=== PATIENT | male | born 1995 | race Two or more races ===

== ENCOUNTER 2019-09-18 03:15 | Inpatient (IN) | payer OTHER ==
[~2019-09-18] VITALS: Ht 198.1 cm; Wt 92.6 kg
--- NOTE | 2019-09-18 05:10 | NUR ---
NURSE NOTES: Pt arrived to the unit pt is a direct admit from [facility], report provided by nut process helper and and pt, pt is a/ox4, breaths regular unlabored at RA, pt denies any pain while laying stil, but gets pain if he attemprts to move. abd sounds present in all quadrants but hypo active on Left lower quadrant, skin is intact with body tattoos. Oriented pt to the room , side rails upx2, bed in low locked position , call light with in reach , will call md for admission orders
--- NOTE | 2019-09-18 05:15 | NUR ---
NURSE NOTES: Vitals Bp 130/92 HR 99 RR20 T 98 o2sat 96
--- NOTE | 2019-09-18 06:40 | NUR ---
NURSE NOTES: Admission orders received verified and carried out
[2019-09-18] MEDS ORDERED: HYDROcodone/Acetamin 5/325 tab ORAL PRN (07:15)
[2019-09-18] MEDS ORDERED: Morphine Sulfate 2mg/ml Inj(IV/IM USE ONLY) IVP PRN (07:15)
--- NOTE | 2019-09-18 07:15 | NUR ---
HAND-OFF: Report given to ALESSANDRA Freeman .
--- NOTE | 2019-09-18 07:30 | NUR ---
nurse notes received patient in bed, patient awake, alert oriented x4, ambulatory, no sign of distress, HL patent, denies pain or discomfort, plan of care was discussed verbalized understanding 4 P's in progress call light w/n hector ulloa rn
[2019-09-18 08:00] VITALS: BP 142/79
[2019-09-18 09:00] LABS: BASOPHILS % (AUTO) 0.3 % (0.0-2.0); EOSINOPHILS % (AUTO) 0.1 % (0.0-3.0); HEMATOCRIT 50.6 % (42.0-52.0); LYMPHOCYTES % (AUTO) 17.2 % (20.0-45.0); MEAN CORPUSCULAR VOLUME 79 FL (80-99); MONOCYTES % (AUTO) 7.1 % (1.0-10.0); NEUTROPHILS % (AUTO) 75.3 % (45.0-75.0); PLATELET COUNT 189 K/UL (150-450); RED BLOOD COUNT 6.44 M/UL (4.70-6.10); RED CELL DISTRIBUTION WIDTH 13.5 % (11.6-14.8); WHITE BLOOD COUNT 11.9 K/UL (4.8-10.8)
[2019-09-18 09:16] LABS: ALANINE AMINOTRANSFERASE 53 U/L (12-78); ALBUMIN 3.6 G/DL (3.4-5.0); ALBUMIN/GLOBULIN RATIO 0.9 (1.0-2.7); ALKALINE PHOSPHATASE 151 U/L (46-116); ANION GAP 12 mmol/L (5-15); ASPARTATE AMINO TRANSFERASE 24 U/L (15-37); BILIRUBIN,TOTAL 0.4 MG/DL (0.2-1.0); BLOOD UREA NITROGEN 11 mg/dL (7-18); CALCIUM 8.9 MG/DL (8.5-10.1); CARBON DIOXIDE 25 MMOL/L (21-32); CHLORIDE 101 MMOL/L (98-107); CREATININE 1.1 MG/DL (0.55-1.30); PHOSPHORUS 4.3 MG/DL (2.5-4.9); POTASSIUM 3.5 MMOL/L (3.5-5.1); SODIUM 138 MMOL/L (136-145)
[2019-09-18] MEDS: cefTRIAXone 1 GM in D5W 55 ML IVPB SCH (09:24)
[2019-09-18] MEDS: D5 1/2NS w/KCl 20mEq 1,000 ML IV SCH (10:46)
--- NOTE | 2019-09-18 10:53 | NUR ---
*-* INSURANCE *-* ALL AVAILABLE CLINICALS HAVE BEEN FAXED TO: [employer] F: [phone]
--- NOTE | 2019-09-18 11:16 | General Progress Note ---
Assessment/Plan Assessment/Plan: colitis GIB elevated CRP pending stool studies pain control ivf plan colonoscopy on Monday Subjective ROS Limited/Unobtainable: Yes Allergies: Coded Allergies: No Known Allergies (Unverified , 09/18/19) Objective Last 24 Hour Vital Signs Date Time Temp Pulse Resp B/P (MAP) Pulse Ox O2 Delivery O2 Flow Rate FiO2 09/18/19 08:29 Room Air 09/18/19 08:00 98.2 98 20 142/79 (100) 99 09/18/19 07:42 Room Air Laboratory Tests 09/18/19 08:00: White Blood Count 11.9H, Red Blood Count 6.44H, Hemoglobin 17.0, Hematocrit 50.6 , Mean Corpuscular Volume 79L, Mean Corpuscular Hemoglobin 26.4L, Mean Corpuscular Hemoglobin Concent 33.6, Red Cell Distribution Width 13.5, Platelet Count 189, Mean Platelet Volume 9.6, Neutrophils (%) (Auto) 75.3H, Lymphocytes ( %) (Auto) 17.2L, Monocytes (%) (Auto) 7.1, Eosinophils (%) (Auto) 0.1, Basophils (%) (Auto) 0.3, Erythrocyte Sedimentation Rate 25H, Sodium Level 138, Potassium Level 3.5, Chloride Level 101, Carbon Dioxide Level 25, Anion Gap 12, Blood Urea Nitrogen 11, Creatinine 1.1, Estimat Glomerular Filtration Rate > 60 , Glucose Level 94, Calcium Level 8.9, Phosphorus Level 4.3, Magnesium Level 2.0 , Total Bilirubin 0.4, Aspartate Amino Transf (AST/SGOT) 24, Alanine Aminotransferase (ALT/SGPT) 53, Alkaline Phosphatase 151H, C-Reactive Protein, Quantitative 14.1H, Total Protein 7.8, Albumin 3.6, Globulin 4.2, Albumin/ Globulin Ratio 0.9L Height (Feet): 6 Weight (Pounds): 204 General Appearance: alert EENT: PERRL/EOMI Neck: supple Cardiovascular: normal rate Respiratory/Chest: decreased breath sounds Abdomen: soft, hypoactive bowel sounds, tender Extremities: non-tender Barron Keith MD September 18, 2019 11:16
[2019-09-18 11:54] VITALS: BP 136/99
--- NOTE | 2019-09-18 12:19 | History & Physical ---
History and Physical History & Physicial Dictated for Int Med-Dr Lyons no. [id number] Nick Avila MD September 18, 2019 12:19
--- NOTE | 2019-09-18 12:45 | NUR ---
CASE MANAGEMENT:INITIAL REVIEW 23 YR OLD MALE TRANSFERRED FROM [facility] TO [facility] [facility] D/T INSURANCE SI;COLITIS. GI BLEED. ELEVATED CRP. 98.2 98 20 142/79 99% ON RA WBC 11.9 ALK PHOS 151 CRP 14.1 IS;NORCO PO IVF D5W ZOFRAN IV MORPHINE IV FLAGYL IV ROCEPHIN IV ADMITTED TO MED SURG @ 0841 ON 09/18/19 MED SURG STATUS DCP;FROM HOME PLAN;CLEAR LIQUID DIET COLONOSCOPY
--- NOTE | 2019-09-18 15:24 | Consultation ---
History of Present Illness General Date patient seen: September 18, 2019 Present Illness HPI 23 year old homosexual male without any PMHx was taken to [facility] with CC of RLQ abdominal pain and bright red blood per rectum for two days. A CT of abdomen showed Colitis in transverse and descending colon. Pt is transferred to [facility] for further medical care. Allergies: Coded Allergies: No Known Allergies (Unverified , 09/18/19) Patient History Healthcare decision maker Resuscitation status Advanced Directive on File Past Medical/Surgical History Past Medical/Surgical History: (1) No pertinent past medical history Review of Systems All Other Systems: negative except mentioned in HPI Physical Exam General Appearance: WD/WN, no apparent distress Lines, tubes and drains: peripheral, PICC HEENT: normocephalic, atraumatic Neck: non-tender, normal alignment Respiratory/Chest: lungs clear, normal breath sounds Cardiovascular/Chest: normal peripheral pulses Abdomen: normal bowel sounds Genitourinary/Rectal: normal genital exam Last 24 Hour Vital Signs Date Time Temp Pulse Resp B/P (MAP) Pulse Ox O2 Delivery O2 Flow Rate FiO2 09/18/19 11:54 97.4 92 19 136/99 (111) 99 09/18/19 08:29 Room Air 09/18/19 08:00 98.2 98 20 142/79 (100) 99 09/18/19 07:42 Room Air Laboratory Tests Test 09/18/19 08:00 09/18/19 12:50 White Blood Count 11.9 K/UL (4.8-10.8) H Red Blood Count 6.44 M/UL (4.70-6.10) H Hemoglobin 17.0 G/DL (14.2-18.0) Hematocrit 50.6 % (42.0-52.0) Mean Corpuscular Volume 79 FL (80-99) L Mean Corpuscular Hemoglobin 26.4 PG (27.0-31.0) L Mean Corpuscular Hemoglobin Concent 33.6 G/DL (32.0-36.0) Red Cell Distribution Width 13.5 % (11.6-14.8) Platelet Count 189 K/UL (150-450) Mean Platelet Volume 9.6 FL (6.5-10.1) Neutrophils (%) (Auto) 75.3 % (45.0-75.0) H Lymphocytes (%) (Auto) 17.2 % (20.0-45.0) L Monocytes (%) (Auto) 7.1 % (1.0-10.0) Eosinophils (%) (Auto) 0.1 % (0.0-3.0) Basophils (%) (Auto) 0.3 % (0.0-2.0) Erythrocyte Sedimentation Rate 25 MM/HR (0-15) H Sodium Level 138 MMOL/L (136-145) Potassium Level 3.5 MMOL/L (3.5-5.1) Chloride Level 101 MMOL/L (98-107) Carbon Dioxide Level 25 MMOL/L (21-32) Anion Gap 12 mmol/L (5-15) Blood Urea Nitrogen 11 mg/dL (7-18) Creatinine 1.1 MG/DL (0.55-1.30) Estimat Glomerular Filtration Rate > 60 mL/min (>60) Glucose Level 94 MG/DL (74-106) Calcium Level 8.9 MG/DL (8.5-10.1) Phosphorus Level 4.3 MG/DL (2.5-4.9) Magnesium Level 2.0 MG/DL (1.8-2.4) Total Bilirubin 0.4 MG/DL (0.2-1.0) Aspartate Amino Transf (AST/SGOT) 24 U/L (15-37) Alanine Aminotransferase (ALT/SGPT) 53 U/L (12-78) Alkaline Phosphatase 151 U/L (46-116) H C-Reactive Protein, Quantitative 14.1 mg/dL (0.00-0.90) H Total Protein 7.8 G/DL (6.4-8.2) Albumin 3.6 G/DL (3.4-5.0) Globulin 4.2 g/dL Albumin/Globulin Ratio 0.9 (1.0-2.7) L Urine Opiates Screen Positive (NEGATIVE) H Urine Barbiturates Screen Negative (NEGATIVE) Phencyclidine (PCP) Screen Negative (NEGATIVE) Urine Amphetamines Screen Negative (NEGATIVE) Urine Benzodiazepines Screen Negative (NEGATIVE) Urine Cocaine Screen Positive (NEGATIVE) H Urine Marijuana (THC) Screen Negative (NEGATIVE) Height (Feet): 6 Weight (Pounds): 204 Medications Current Medications Medications (Trade) Dose Ordered Sig/Pallavi Route PRN Reason Start Time Stop Time Status Last Admin Dose Admin Acetaminophen (Tylenol) 650 mg Q6H PRN ORAL mild pain 1-3/temp>100.4 09/18/19 07:15 10/18/19 07:14 Acetaminophen/ Hydrocodone Bitart ([place] 5/325) 1 tab Q4H PRN ORAL Moderate Pain (Pain Scale 4-6) 09/18/19 07:15 09/25/19 07:14 Ceftriaxone Sodium 1 gm/ Dextrose 55 ml @ 110 mls/hr Q24H IVPB 09/18/19 09:00 09/25/19 08:59 09/18/19 09:24 Dextrose/ Electrolytes 1,000 ml @ 75 mls/hr [id number] IV 09/18/19 11:00 10/18/19 10:59 09/18/19 10:46 Metronidazole 100 ml @ 100 mls/hr Q8H IVPB 09/18/19 10:00 09/25/19 09:59 09/18/19 10:02 Morphine Sulfate (Morphine Sulfate) 2 mg Q4H PRN IVP Severe Pain (Pain Scale 7-10) 09/18/19 07:15 09/25/19 07:14 09/18/19 09:28 Ondansetron HCl (Zofran) 4 mg Q4H PRN IVP Nausea & Vomiting 09/18/19 07:15 10/18/19 07:14 Assessment/Plan Problem List: (1) Lower GI bleed ICD Codes: K92.2 - Gastrointestinal hemorrhage, unspecified SNOMED: 81990170 (2) colitis (3) No pertinent past medical history ICD Codes: Z78.9 - Other specified health status SNOMED: 236520262 Diagnosis Alfred I: NPO iv fluids colonoscopy jesse prbc prn ( no need now) GI evaluation. symptomatic treatment analgesics HIV testing Priyanka Hollingsworth MD September 18, 2019 15:24
[2019-09-18 15:59] VITALS: BP 134/85
--- NOTE | 2019-09-18 17:28 | Consultation ---
History of Present Illness General Date patient seen: September 18, 2019 Present Illness HPI 23 y/o M with no prior medical history is trasnferred from [facility] to [facility] on for continuation of care. Patient originally presented to [facility] ED on 09/16 with 2 days of LLQ pain and rectal bleeding ; patient had multiple episodes of bloody stools. Blood is bright red in color. Patient thought it was food poisoning. Denied fever/chills, nausea, vomiting, wt loos, GARCIA, CP, SOB CT abd/p: colitis of the transverse and descending colon. The rectosigmoid was also inflamed. Patient is with a man. they have an open relationship. Practice both receptive and isertive anal intercourse. Last receptive anal intercourse was on Feb 2019 per patient, lately has just practice oral sex. 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 The patient denies tobacco use. The patient admits to alcohol use of 2 times per month. Fhx: non contributory Review of Systems All Other Systems: negative except mentioned in HPI Physical Exam Physical Exam Narrative General Appearance: alert EENT: PERRL/EOMI Neck: supple Cardiovascular: normal rate Respiratory/Chest: decreased breath sounds Abdomen: soft, hypoactive bowel sounds, tender Extremities: non-tender Last 24 Hour Vital Signs Date Time Temp Pulse Resp B/P (MAP) Pulse Ox O2 Delivery O2 Flow Rate FiO2 09/18/19 15:59 99.7 93 20 134/85 (101) 99 09/18/19 11:54 97.4 92 19 136/99 (111) 99 09/18/19 08:29 Room Air 09/18/19 08:00 98.2 98 20 142/79 (100) 99 09/18/19 07:42 Room Air Laboratory Tests Test 09/18/19 08:00 09/18/19 12:50 White Blood Count 11.9 K/UL (4.8-10.8) H Red Blood Count 6.44 M/UL (4.70-6.10) H Hemoglobin 17.0 G/DL (14.2-18.0) Hematocrit 50.6 % (42.0-52.0) Mean Corpuscular Volume 79 FL (80-99) L Mean Corpuscular Hemoglobin 26.4 PG (27.0-31.0) L Mean Corpuscular Hemoglobin Concent 33.6 G/DL (32.0-36.0) Red Cell Distribution Width 13.5 % (11.6-14.8) Platelet Count 189 K/UL (150-450) Mean Platelet Volume 9.6 FL (6.5-10.1) Neutrophils (%) (Auto) 75.3 % (45.0-75.0) H Lymphocytes (%) (Auto) 17.2 % (20.0-45.0) L Monocytes (%) (Auto) 7.1 % (1.0-10.0) Eosinophils (%) (Auto) 0.1 % (0.0-3.0) Basophils (%) (Auto) 0.3 % (0.0-2.0) Erythrocyte Sedimentation Rate 25 MM/HR (0-15) H Sodium Level 138 MMOL/L (136-145) Potassium Level 3.5 MMOL/L (3.5-5.1) Chloride Level 101 MMOL/L (98-107) Carbon Dioxide Level 25 MMOL/L (21-32) Anion Gap 12 mmol/L (5-15) Blood Urea Nitrogen 11 mg/dL (7-18) Creatinine 1.1 MG/DL (0.55-1.30) Estimat Glomerular Filtration Rate > 60 mL/min (>60) Glucose Level 94 MG/DL (74-106) Calcium Level 8.9 MG/DL (8.5-10.1) Phosphorus Level 4.3 MG/DL (2.5-4.9) Magnesium Level 2.0 MG/DL (1.8-2.4) Total Bilirubin 0.4 MG/DL (0.2-1.0) Aspartate Amino Transf (AST/SGOT) 24 U/L (15-37) Alanine Aminotransferase (ALT/SGPT) 53 U/L (12-78) Alkaline Phosphatase 151 U/L (46-116) H C-Reactive Protein, Quantitative 14.1 mg/dL (0.00-0.90) H Total Protein 7.8 G/DL (6.4-8.2) Albumin 3.6 G/DL (3.4-5.0) Globulin 4.2 g/dL Albumin/Globulin Ratio 0.9 (1.0-2.7) L Urine Opiates Screen Positive (NEGATIVE) H Urine Barbiturates Screen Negative (NEGATIVE) Phencyclidine (PCP) Screen Negative (NEGATIVE) Urine Amphetamines Screen Negative (NEGATIVE) Urine Benzodiazepines Screen Negative (NEGATIVE) Urine Cocaine Screen Positive (NEGATIVE) H Urine Marijuana (THC) Screen Negative (NEGATIVE) Height (Feet): 6 Weight (Pounds): 204 Medications Current Medications Medications (Trade) Dose Ordered Sig/Pallavi Route PRN Reason Start Time Stop Time Status Last Admin Dose Admin Acetaminophen (Tylenol) 650 mg Q6H PRN ORAL mild pain 1-3/temp>100.4 09/18/19 07:15 10/18/19 07:14 Acetaminophen/ Hydrocodone Bitart ([place] 5/325) 1 tab Q4H PRN ORAL Moderate Pain (Pain Scale 4-6) 09/18/19 07:15 09/25/19 07:14 Ceftriaxone Sodium 1 gm/ Dextrose 55 ml @ 110 mls/hr Q24H IVPB 09/18/19 09:00 09/25/19 08:59 09/18/19 09:24 Dextrose/ Electrolytes 1,000 ml @ 75 mls/hr [id number] IV 09/18/19 11:00 10/18/19 10:59 09/18/19 10:46 Metronidazole 100 ml @ 100 mls/hr Q8H IVPB 09/18/19 10:00 09/25/19 09:59 09/18/19 10:02 Morphine Sulfate (Morphine Sulfate) 2 mg Q4H PRN IVP Severe Pain (Pain Scale 7-10) 09/18/19 07:15 09/25/19 07:14 09/18/19 09:28 Ondansetron HCl (Zofran) 4 mg Q4H PRN IVP Nausea & Vomiting 09/18/19 07:15 10/18/19 07:14 Assessment/Plan Assessment/Plan: Abx: Ceftriaxone 09/17- Flagyl 09/17- Assessment: COVID19 neg x1 (09/17 -done at [facility]) Colitis- r/o infectious vs autoimmune ([facility] or UC) Hematochezia -CT abd/p (at [place]): Thick walled edematous transver colon, descending colon and rectosigmoid colon with normal caliber. Findings suggestive of colitis , possible IBD. Normal terminal ileum. No bowel obstruction. No adenopathy. Afebrile Mild leukocytosis, improving (WBC 13.7 at [facility]) UDS + cocaine, opiates Plan: -Continue empiric Ceftriaxone and Flagyl #1 -f/u cx -monitor CBC/CMP, temperatures -f/u stool cx, Cdiff -GI f/u -HIV ag/ab Thank you for consulting [facility]. Will continue to follow along with you. Discussed with Allie Linder M.D. September 18, 2019 17:28
--- NOTE | 2019-09-18 18:15 | History and Physical Report ---
DATE OF ADMISSION: 09/18/2019 CHIEF COMPLAINT: The patient is a 23-year-old male who presents with a chief complaint of bleeding from the rectum. HISTORY OF PRESENT ILLNESS: Began on Monday September 16, 2019, the patient began to experience left lower quadrant abdominal pain. The patient then began to experience bright red blood per rectum on Tuesday September 17, 2019. The patient had multiple episodes of bloody stool. The blood is bright red in color. It is also on the toilet paper as well. The stool itself is brown in color. The patient initially presented to [facility] emergency room. A CT scan of the abdomen revealed colitis of the transverse and descending colon. The rectosigmoid was also inflamed. The patient was admitted to [facility] for insurance purposes. The patient was admitted with bright red blood per rectum with colitis. REVIEW OF SYSTEMS: CONSTITUTIONAL: The patient denies weight loss or weight gain. The patient denies fevers or chills. HEENT: The patient denies ear or throat pain. The patient denies headache. CARDIOVASCULAR: The patient denies palpitations or chest pain. CHEST: The patient denies wheeze or shortness of breath. ABDOMEN: The patient complains of left lower quadrant pain. The patient complains of bright red blood per rectum as above. The patient denies diarrhea or constipation. GENITOURINARY: The patient denies dysuria or increased frequency of urination. NEUROMUSCULAR: The patient denies seizures or generalized weakness. PAST MEDICAL HISTORY: The patient denies. PAST SURGICAL HISTORY: The patient denies. CURRENT MEDICATIONS: The patient denies. ALLERGIES: No known drug allergies. 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 The patient denies tobacco use. The patient admits to alcohol use of 2 times per month. FAMILY HISTORY: Negative for diabetes or colon cancer. PHYSICAL EXAMINATION: VITAL SIGNS: Temperature 98.3, respirations 18, pulse 105, blood pressure 149/107. GENERAL: The patient is well-developed and well-nourished male, in no apparent distress. HEENT: Eyes, pupils are equal and responsive to light and accommodation. Extraocular movements are intact. NECK: Supple without lymphadenopathy. CHEST: Lungs are clear to auscultation bilaterally without wheezes or rales. CARDIOVASCULAR: Regular rhythm and rate. S1 and S2 are normal without murmurs, rubs, or gallops. ABDOMEN: Soft, tender to palpation in the left lower quadrant without rebound or guarding. GENITOURINARY: Deferred. RECTAL: Deferred. NEUROLOGIC: Cranial nerves II through XII are grossly intact without focal deficits. Motor strength is 5/5 bilaterally. Deep tendon reflexes are 2+ plantar. LABORATORY STUDIES: WBC 13.7, hemoglobin 16.7, hematocrit 52.3, platelets 175,000. Sodium 136, potassium 3.7, chloride 102, CO2 22, BUN 11, creatinine 1.02, glucose 105. ProTime , INR 1.0. CT scan of the abdomen revealed inflammation of the transverse, descending, and rectosigmoid sigmoid colon consistent with colitis. ASSESSMENT: This is a 23-year-old male: 1. Rectal hemorrhage. 2. Colitis. 3. Left lower quadrant abdominal pain. TREATMENT: 1. Rectal hemorrhage/colitis. The patient has been started empirically on intravenous ceftriaxone and metronidazole. A Gastroenterology consultation is pending with Dr. Barron Keith. We will follow recommendations of Gastroenterology. Differential includes viral versus bacterial colitis. Stool cultures are pending. 2. Left lower quadrant abdominal pain. The patient is currently tolerating morphine sulfate intravenously and oral [place]. Nick Avila M.D. DR: Kaylene JOB#: [id number] CC:
--- NOTE | 2019-09-18 19:38 | NUR ---
HAND-OFF: Report given to Abbey APARICIO accordingly terrie ulloa.
--- NOTE | 2019-09-18 19:40 | NUR ---
NURSE NOTES: Received report from Katelyn APARICIO
--- NOTE | 2019-09-18 19:45 | NUR ---
NURSE NOTES: Pt laying in bed, A/Ox 4, No apparent distress, Breathing regular and unlabored on RA, IV site left AC 20G, Pt denies pain, bed alarm on, Low locked position, call light within reach. side rales up X3,
[2019-09-18 20:00] VITALS: BP 132/97
[2019-09-19] VITALS (7 sets, daily range): BP systolic 105–135; BP diastolic 74–87
[2019-09-19 06:39] LABS: BASOPHILS % (AUTO) 0.8 % (0.0-2.0); EOSINOPHILS % (AUTO) 0.3 % (0.0-3.0); HEMATOCRIT 46.6 % (42.0-52.0); HEMOGLOBIN 15.8 G/DL (14.2-18.0); LYMPHOCYTES % (AUTO) 34.3 % (20.0-45.0); MEAN CORPUSCULAR VOLUME 79 FL (80-99); MONOCYTES % (AUTO) 8.7 % (1.0-10.0); NEUTROPHILS % (AUTO) 55.8 % (45.0-75.0); PLATELET COUNT 189 K/UL (150-450); RED CELL DISTRIBUTION WIDTH 13.2 % (11.6-14.8); WHITE BLOOD COUNT 9.8 K/UL (4.8-10.8)
[2019-09-19 07:14] LABS: ALANINE AMINOTRANSFERASE 56 U/L (12-78); ALBUMIN 3.2 G/DL (3.4-5.0); ALBUMIN/GLOBULIN RATIO 0.8 (1.0-2.7); ALKALINE PHOSPHATASE 125 U/L (46-116); ANION GAP 9 mmol/L (5-15); ASPARTATE AMINO TRANSFERASE 32 U/L (15-37); BILIRUBIN,TOTAL 0.2 MG/DL (0.2-1.0); BLOOD UREA NITROGEN 7 mg/dL (7-18); CALCIUM 8.7 MG/DL (8.5-10.1); CARBON DIOXIDE 28 MMOL/L (21-32); CHLORIDE 101 MMOL/L (98-107); CREATININE 1.2 MG/DL (0.55-1.30); POTASSIUM 3.6 MMOL/L (3.5-5.1); SODIUM 138 MMOL/L (136-145)
--- NOTE | 2019-09-19 07:26 | NUR ---
NURSE NOTES:BEDSIDE ROUNDS WITH NIGHT RN(VERONICA),PT.AWAKE,AO X4,NO C/O PAIN.IV SITE INTACT.ADVISED RE:TO NOTIFY NURSE FOR BLOODY STOOL.WILL CONTINUE PLAN OF CARE.
--- NOTE | 2019-09-19 07:26 | NUR ---
HAND-OFF: Report given to ALESSANDRA Castellon..
[2019-09-19 07:35] LABS: PHOSPHORUS 4.2 MG/DL (2.5-4.9)
[2019-09-19] MEDS: cefTRIAXone 1 GM in D5W 55 ML IVPB SCH (08:42)
--- NOTE | 2019-09-19 09:53 | General Progress Note ---
Assessment/Plan Assessment/Plan: colitis GIB elevated CRP cocaine positive pending stool studies pain control ivf plan colonoscopy on Monday Subjective ROS Limited/Unobtainable: Yes Allergies: Coded Allergies: No Known Allergies (Unverified , 09/18/19) Objective Last 24 Hour Vital Signs Date Time Temp Pulse Resp B/P (MAP) Pulse Ox O2 Delivery O2 Flow Rate FiO2 09/19/19 08:00 98.5 91 20 134/87 (103) 98 09/19/19 07:28 Room Air 09/19/19 04:00 97.1 92 19 105/74 (84) 98 09/19/19 00:00 97.4 93 19 135/85 (102) 97 09/18/19 21:00 Room Air 09/18/19 20:00 98.0 91 19 132/97 (109) 99 09/18/19 15:59 99.7 93 20 134/85 (101) 99 09/18/19 11:54 97.4 92 19 136/99 (111) 99 Intake and Output 09/18/19 09/19/19 19:00 07:00 Intake Total 1455 ml 900 ml Output Total 650 ml Balance 1455 ml 250 ml Intake Oral 700 ml IV Total 755 ml 900 ml Output Urine Total 650 ml # Voids 3 2 # Bowel Movements 2 Laboratory Tests 09/18/19 12:50: Urine Opiates Screen PositiveH, Urine Barbiturates Screen Negative, Phencyclidine (PCP) Screen Negative, Urine Amphetamines Screen Negative, Urine Benzodiazepines Screen Negative, Urine Cocaine Screen PositiveH, Urine Marijuana (THC) Screen Negative 09/19/19 06:05: White Blood Count 9.8, Red Blood Count 5.90, Hemoglobin 15.8, Hematocrit 46.6, Mean Corpuscular Volume 79L, Mean Corpuscular Hemoglobin 26.7L, Mean Corpuscular Hemoglobin Concent 33.9, Red Cell Distribution Width 13.2, Platelet Count 189, Mean Platelet Volume 10.2H, Neutrophils (%) (Auto) 55.8, Lymphocytes (%) (Auto) 34.3, Monocytes (%) (Auto) 8.7, Eosinophils (%) (Auto) 0.3, Basophils (%) (Auto) 0.8, Erythrocyte Sedimentation Rate 6, Sodium Level 138, Potassium Level 3.6, Chloride Level 101, Carbon Dioxide Level 28, Anion Gap 9, Blood Urea Nitrogen 7, Creatinine 1.2, Estimat Glomerular Filtration Rate > 60, Glucose Level 91, Calcium Level 8.7, Phosphorus Level 4.2, Magnesium Level 2.2, Total Bilirubin 0.2, Aspartate Amino Transf (AST/SGOT) 32, Alanine Aminotransferase (ALT/SGPT) 56, Alkaline Phosphatase 125H, C-Reactive Protein, Quantitative 4.9H, Total Protein 7.2, Albumin 3.2L, Globulin 4.0, Albumin/ Globulin Ratio 0.8L, HIV (1&2) Antibody Rapid Negative Height (Feet): 6 Weight (Pounds): 204 General Appearance: alert EENT: normal ENT inspection Neck: supple Cardiovascular: normal rate Respiratory/Chest: decreased breath sounds Abdomen: normal bowel sounds, non tender, soft Extremities: normal range of motion, non-tender Barron Keith MD September 19, 2019 09:53
--- NOTE | 2019-09-19 13:32 | NUR ---
CASE MANAGEMENT:REVIEW SI;COLITIS. GI BLEED. ELEVATED CRP. 98.5 93 20 135/85 97% ON RA ALK PHOS 125 CRP 4.9 ALB 3.2 IS;IVF D5LR @ 75 ML/HR FLAGYL IV Q8 HRS ROCEPHIN IV Q8 HRS NULYTELY COLONOSCOPY PREP MED SURG STATUS DCP;FROM HOME PLAN;CLEAR LIQUID DIET NPO ON 09/20/19 COLONOSCOPY
--- NOTE | 2019-09-19 13:36 | Pulmonology Progress Note ---
Subjective ROS Limited/Unobtainable: Yes Allergies: Coded Allergies: No Known Allergies (Unverified , 09/18/19) All Systems: reviewed and negative except above Objective Last 24 Hour Vital Signs Date Time Temp Pulse Resp B/P (MAP) Pulse Ox O2 Delivery O2 Flow Rate FiO2 09/19/19 12:00 98.5 86 20 132/79 (96) 98 09/19/19 08:00 98.5 91 20 134/87 (103) 98 09/19/19 07:28 Room Air 09/19/19 04:00 97.1 92 19 105/74 (84) 98 09/19/19 00:00 97.4 93 19 135/85 (102) 97 09/18/19 21:00 Room Air 09/18/19 20:00 98.0 91 19 132/97 (109) 99 09/18/19 15:59 99.7 93 20 134/85 (101) 99 Intake and Output 09/18/19 09/19/19 18:59 06:59 Intake Total 1380 ml 900 ml Output Total 650 ml Balance 1380 ml 250 ml Intake Oral 700 ml IV Total 680 ml 900 ml Output Urine Total 650 ml # Voids 3 2 # Bowel Movements 2 General Appearance: WD/WN, no acute distress HEENT: normocephalic, atraumatic Respiratory: chest wall non-tender, lungs clear Cardiovascular: normal peripheral pulses, normal rate Abdomen: normal bowel sounds, soft, non tender Genitourinary: normal external genitalia Extremities: no clubbing Skin: no rash 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 normal Lymphatic: no neck adenopathy Microbiology Date/Time Source Procedure Growth Status 09/18/19 12:50 Stool Clostridium difficile Toxin Assay - Final Complete Laboratory Tests 09/19/19 06:05: White Blood Count 9.8, Red Blood Count 5.90, Hemoglobin 15.8, Hematocrit 46.6, Mean Corpuscular Volume 79L, Mean Corpuscular Hemoglobin 26.7L, Mean Corpuscular Hemoglobin Concent 33.9, Red Cell Distribution Width 13.2, Platelet Count 189, Mean Platelet Volume 10.2H, Neutrophils (%) (Auto) 55.8, Lymphocytes (%) (Auto) 34.3, Monocytes (%) (Auto) 8.7, Eosinophils (%) (Auto) 0.3, Basophils (%) (Auto) 0.8, Erythrocyte Sedimentation Rate 6, Sodium Level 138, Potassium Level 3.6, Chloride Level 101, Carbon Dioxide Level 28, Anion Gap 9, Blood Urea Nitrogen 7, Creatinine 1.2, Estimat Glomerular Filtration Rate > 60, Glucose Level 91, Calcium Level 8.7, Phosphorus Level 4.2, Magnesium Level 2.2, Total Bilirubin 0.2, Aspartate Amino Transf (AST/SGOT) 32, Alanine Aminotransferase (ALT/SGPT) 56, Alkaline Phosphatase 125H, C-Reactive Protein, Quantitative 4.9H, Total Protein 7.2, Albumin 3.2L, Globulin 4.0, Albumin/ Globulin Ratio 0.8L, HIV (1&2) Antibody Rapid Negative Current Medications Medications (Trade) Dose Ordered Sig/Pallavi Route PRN Reason Start Time Stop Time Status Last Admin Dose Admin Acetaminophen (Tylenol) 650 mg Q6H PRN ORAL mild pain 1-3/temp>100.4 09/18/19 07:15 10/18/19 07:14 Acetaminophen/ Hydrocodone Bitart ([place] 5/325) 1 tab Q4H PRN ORAL Moderate Pain (Pain Scale 4-6) 09/18/19 07:15 09/25/19 07:14 Ceftriaxone Sodium 1 gm/ Dextrose 55 ml @ 110 mls/hr Q24H IVPB 09/18/19 09:00 09/25/19 08:59 09/19/19 08:42 Dextrose/ Electrolytes 1,000 ml @ 75 mls/hr [id number] IV 09/18/19 11:00 10/18/19 10:59 09/19/19 00:00 Metronidazole 100 ml @ 100 mls/hr Q8H IVPB 09/18/19 10:00 09/25/19 09:59 09/19/19 09:54 Morphine Sulfate (Morphine Sulfate) 2 mg Q4H PRN IVP Severe Pain (Pain Scale 7-10) 09/18/19 07:15 09/25/19 07:14 09/18/19 09:28 Ondansetron HCl (Zofran) 4 mg Q4H PRN IVP Nausea & Vomiting 09/18/19 07:15 10/18/19 07:14 Polyethylene Glycol/ Electrolytes (Nulytely) 4,000 ml ONCE ORAL 09/19/19 14:00 09/19/19 21:00 Assessment/Plan Problems: (1) Lower GI bleed (2) colitis (3) No pertinent past medical history Assessment/Plan doing better start diet iv fluids colonoscopy done, Concepcion colitis, UC versus infectious cause prbc prn ( no need now) GI evaluation. symptomatic treatment analgesics HIV testing, negative f/u on CRP Priyanka Hollingsworth MD September 19, 2019 13:36
[2019-09-19] MEDS ORDERED: Nulytely 4L ORAL SCH (14:00)
--- NOTE | 2019-09-19 14:16 | NUR ---
NURSE NOTES:CONSENTED FOR COLONOSCOPY FOR TOMORROW,PT.VERBALIZED THAT MD EXPLAIN PROCEDURE.STARTED ON NULYTELY PREP.
[2019-09-19] MEDS: D5 1/2NS w/KCl 20mEq 1,000 ML IV SCH ×2 (14:24)
--- NOTE | 2019-09-19 15:33 | Internal Med Progress Note ---
Subjective Date of Service: September 19, 2019 Physician Name Nick Avila Attending Physician Tristen Lyons MD Current Medications Medications (Trade) Dose Ordered Sig/Pallavi Route PRN Reason Start Time Stop Time Status Last Admin Dose Admin Acetaminophen (Tylenol) 650 mg Q6H PRN ORAL mild pain 1-3/temp>100.4 09/18/19 07:15 10/18/19 07:14 Acetaminophen/ Hydrocodone Bitart ([place] 5/325) 1 tab Q4H PRN ORAL Moderate Pain (Pain Scale 4-6) 09/18/19 07:15 09/25/19 07:14 Ceftriaxone Sodium 1 gm/ Dextrose 55 ml @ 110 mls/hr Q24H IVPB 09/18/19 09:00 09/25/19 08:59 09/19/19 08:42 Dextrose/ Electrolytes 1,000 ml @ 75 mls/hr [id number] IV 09/18/19 11:00 10/18/19 10:59 09/19/19 14:24 Metronidazole 100 ml @ 100 mls/hr Q8H IVPB 09/18/19 10:00 09/25/19 09:59 09/19/19 09:54 Morphine Sulfate (Morphine Sulfate) 2 mg Q4H PRN IVP Severe Pain (Pain Scale 7-10) 09/18/19 07:15 09/25/19 07:14 09/18/19 09:28 Ondansetron HCl (Zofran) 4 mg Q4H PRN IVP Nausea & Vomiting 09/18/19 07:15 10/18/19 07:14 Polyethylene Glycol/ Electrolytes (Nulytely) 4,000 ml ONCE ORAL 09/19/19 14:00 09/19/19 21:00 09/19/19 14:24 Allergies: Coded Allergies: No Known Allergies (Unverified , 09/18/19) ROS Limited/Unobtainable: No Constitutional: Reports: no symptoms HEENT: Reports: no symptoms Cardiovascular: Reports: no symptoms Respiratory: Reports: no symptoms Gastrointestinal/Abdominal: Reports: abdominal pain Genitourinary: Reports: no symptoms Neurologic/Psychiatric: Reports: no symptoms Subjective 23 YO M admitted with abdominal pain and rectal bleeding. Now colitis. Cover for Int med-Dr Lyons. Objective Last Vital Signs Date Time Temp Pulse Resp B/P (MAP) Pulse Ox O2 Delivery O2 Flow Rate FiO2 09/19/19 12:00 98.5 86 20 132/79 (96) 98 09/19/19 07:28 Room Air Laboratory Tests Test 09/19/19 06:05 White Blood Count 9.8 K/UL (4.8-10.8) Red Blood Count 5.90 M/UL (4.70-6.10) Hemoglobin 15.8 G/DL (14.2-18.0) Hematocrit 46.6 % (42.0-52.0) Mean Corpuscular Volume 79 FL (80-99) L Mean Corpuscular Hemoglobin 26.7 PG (27.0-31.0) L Mean Corpuscular Hemoglobin Concent 33.9 G/DL (32.0-36.0) Red Cell Distribution Width 13.2 % (11.6-14.8) Platelet Count 189 K/UL (150-450) Mean Platelet Volume 10.2 FL (6.5-10.1) H Neutrophils (%) (Auto) 55.8 % (45.0-75.0) Lymphocytes (%) (Auto) 34.3 % (20.0-45.0) Monocytes (%) (Auto) 8.7 % (1.0-10.0) Eosinophils (%) (Auto) 0.3 % (0.0-3.0) Basophils (%) (Auto) 0.8 % (0.0-2.0) Erythrocyte Sedimentation Rate 6 MM/HR (0-15) Sodium Level 138 MMOL/L (136-145) Potassium Level 3.6 MMOL/L (3.5-5.1) Chloride Level 101 MMOL/L (98-107) Carbon Dioxide Level 28 MMOL/L (21-32) Anion Gap 9 mmol/L (5-15) Blood Urea Nitrogen 7 mg/dL (7-18) Creatinine 1.2 MG/DL (0.55-1.30) Estimat Glomerular Filtration Rate > 60 mL/min (>60) Glucose Level 91 MG/DL (74-106) Calcium Level 8.7 MG/DL (8.5-10.1) Phosphorus Level 4.2 MG/DL (2.5-4.9) Magnesium Level 2.2 MG/DL (1.8-2.4) Total Bilirubin 0.2 MG/DL (0.2-1.0) Aspartate Amino Transf (AST/SGOT) 32 U/L (15-37) Alanine Aminotransferase (ALT/SGPT) 56 U/L (12-78) Alkaline Phosphatase 125 U/L (46-116) H C-Reactive Protein, Quantitative 4.9 mg/dL (0.00-0.90) H Total Protein 7.2 G/DL (6.4-8.2) Albumin 3.2 G/DL (3.4-5.0) L Globulin 4.0 g/dL Albumin/Globulin Ratio 0.8 (1.0-2.7) L HIV (1&2) Antibody Rapid Negative (NEGATIVE) Microbiology Date/Time Source Procedure Growth Status 09/18/19 12:50 Stool Clostridium difficile Toxin Assay - Final Complete Intake and Output 09/18/19 09/19/19 19:00 07:00 Intake Total 1455 ml 900 ml Output Total 650 ml Balance 1455 ml 250 ml Intake Oral 700 ml IV Total 755 ml 900 ml Output Urine Total 650 ml # Voids 3 2 # Bowel Movements 2 Objective PHYSICAL EXAMINATION: GENERAL: The patient is well-developed and well-nourished male, in no apparent distress. HEENT: Eyes, pupils are equal and responsive to light and accommodation. Extraocular movements are intact. NECK: Supple without lymphadenopathy. CHEST: Lungs are clear to auscultation bilaterally without wheezes or rales. CARDIOVASCULAR: Regular rhythm and rate. S1 and S2 are normal without murmurs, rubs, or gallops. ABDOMEN: Soft, tender to palpation in the left lower quadrant without rebound or guarding. GENITOURINARY: Deferred. RECTAL: Deferred. NEUROLOGIC: Cranial nerves II through XII are grossly intact without focal deficits. Motor strength is 5/5 bilaterally. Deep tendon reflexes are 2+ plantar. Assessment/Plan Assessment/Plan ASSESSMENT: This is a 23-year-old male: 1. Rectal hemorrhage. 2. Colitis. 3. Left lower quadrant abdominal pain. TREATMENT: 1. Rectal hemorrhage/colitis. The patient has been started empirically on intravenous ceftriaxone and metronidazole. Gastroenterology= Dr. Barron Keith. Colonoscopy is scheduled for Mon09/20/19. Differential includes viral versus bacterial colitis. Stool cultures are pending. 2. Left lower quadrant abdominal pain. The patient is currently tolerating morphine sulfate intravenously and oral Salcha. Nick Avila MD September 19, 2019 15:33
--- NOTE | 2019-09-19 16:14 | Infectious Diseases Prog Note ---
Assessment/Plan Assessment/Plan Assessment: COVID19 neg x1 (09/17 -done at [place]) Colitis- r/o infectious vs autoimmune ([facility] or UC) Hematochezia -CT abd/p (at [facility]): Thick walled edematous transver colon, descending colon and rectosigmoid colon with normal caliber. Findings suggestive of colitis , possible IBD. Normal terminal ileum. No bowel obstruction. No adenopathy. -Cdiff neg Afebrile Mild leukocytosis, improving (WBC 13.7 at [place])- SP UDS + cocaine, opiates HIV ab screen neg Plan: -Continue empiric Ceftriaxone and Flagyl #2 -f/u cx -monitor CBC/CMP, temperatures -f/u stool cx -GI f/u: plan for colonoscopy 09/19 Thank you for consulting [facility]. Will continue to follow along with you. Discussed with RN. Subjective Allergies: Coded Allergies: No Known Allergies (Unverified , 09/18/19) Objective Vital Signs Last 24 Hour Vital Signs Date Time Temp Pulse Resp B/P (MAP) Pulse Ox O2 Delivery O2 Flow Rate FiO2 09/19/19 12:00 98.5 86 20 132/79 (96) 98 09/19/19 08:00 98.5 91 20 134/87 (103) 98 09/19/19 07:28 Room Air 09/19/19 04:00 97.1 92 19 105/74 (84) 98 09/19/19 00:00 97.4 93 19 135/85 (102) 97 09/18/19 21:00 Room Air 09/18/19 20:00 98.0 91 19 132/97 (109) 99 Height (Feet): 6 Weight (Pounds): 204 Microbiology Date/Time Source Procedure Growth Status 09/18/19 12:50 Stool Clostridium difficile Toxin Assay - Final Complete Laboratory Tests Test 09/19/19 06:05 White Blood Count 9.8 K/UL (4.8-10.8) Red Blood Count 5.90 M/UL (4.70-6.10) Hemoglobin 15.8 G/DL (14.2-18.0) Hematocrit 46.6 % (42.0-52.0) Mean Corpuscular Volume 79 FL (80-99) L Mean Corpuscular Hemoglobin 26.7 PG (27.0-31.0) L Mean Corpuscular Hemoglobin Concent 33.9 G/DL (32.0-36.0) Red Cell Distribution Width 13.2 % (11.6-14.8) Platelet Count 189 K/UL (150-450) Mean Platelet Volume 10.2 FL (6.5-10.1) H Neutrophils (%) (Auto) 55.8 % (45.0-75.0) Lymphocytes (%) (Auto) 34.3 % (20.0-45.0) Monocytes (%) (Auto) 8.7 % (1.0-10.0) Eosinophils (%) (Auto) 0.3 % (0.0-3.0) Basophils (%) (Auto) 0.8 % (0.0-2.0) Erythrocyte Sedimentation Rate 6 MM/HR (0-15) Sodium Level 138 MMOL/L (136-145) Potassium Level 3.6 MMOL/L (3.5-5.1) Chloride Level 101 MMOL/L (98-107) Carbon Dioxide Level 28 MMOL/L (21-32) Anion Gap 9 mmol/L (5-15) Blood Urea Nitrogen 7 mg/dL (7-18) Creatinine 1.2 MG/DL (0.55-1.30) Estimat Glomerular Filtration Rate > 60 mL/min (>60) Glucose Level 91 MG/DL (74-106) Calcium Level 8.7 MG/DL (8.5-10.1) Phosphorus Level 4.2 MG/DL (2.5-4.9) Magnesium Level 2.2 MG/DL (1.8-2.4) Total Bilirubin 0.2 MG/DL (0.2-1.0) Aspartate Amino Transf (AST/SGOT) 32 U/L (15-37) Alanine Aminotransferase (ALT/SGPT) 56 U/L (12-78) Alkaline Phosphatase 125 U/L (46-116) H C-Reactive Protein, Quantitative 4.9 mg/dL (0.00-0.90) H Total Protein 7.2 G/DL (6.4-8.2) Albumin 3.2 G/DL (3.4-5.0) L Globulin 4.0 g/dL Albumin/Globulin Ratio 0.8 (1.0-2.7) L HIV (1&2) Antibody Rapid Negative (NEGATIVE) Current Medications Medications (Trade) Dose Ordered Sig/Pallavi Route PRN Reason Start Time Stop Time Status Last Admin Dose Admin Acetaminophen (Tylenol) 650 mg Q6H PRN ORAL mild pain 1-3/temp>100.4 09/18/19 07:15 10/18/19 07:14 Acetaminophen/ Hydrocodone Bitart ([place] 5/325) 1 tab Q4H PRN ORAL Moderate Pain (Pain Scale 4-6) 09/18/19 07:15 09/25/19 07:14 Ceftriaxone Sodium 1 gm/ Dextrose 55 ml @ 110 mls/hr Q24H IVPB 09/18/19 09:00 09/25/19 08:59 09/19/19 08:42 Dextrose/ Electrolytes 1,000 ml @ 75 mls/hr [id number] IV 09/18/19 11:00 10/18/19 10:59 09/19/19 14:24 Metronidazole 100 ml @ 100 mls/hr Q8H IVPB 09/18/19 10:00 09/25/19 09:59 09/19/19 09:54 Morphine Sulfate (Morphine Sulfate) 2 mg Q4H PRN IVP Severe Pain (Pain Scale 7-10) 09/18/19 07:15 09/25/19 07:14 09/18/19 09:28 Ondansetron HCl (Zofran) 4 mg Q4H PRN IVP Nausea & Vomiting 09/18/19 07:15 10/18/19 07:14 Polyethylene Glycol/ Electrolytes (Nulytely) 4,000 ml ONCE ORAL 09/19/19 14:00 09/19/19 21:00 09/19/19 14:24 Allie Vaughan M.D. September 19, 2019 16:13
--- NOTE | 2019-09-19 16:41 | NUR ---
*-* INSURANCE *-* ALL AVAILABLE CLINICALS HAVE BEEN FAXED TO: [employer] F: [phone]
--- NOTE | 2019-09-19 18:00 | NUR ---
NURSE NOTES:WITH GOOD RESULT FR. BOWEL PREP,TO CONTINUE THE REMAINING 2 LITERS AT 8 PM.PT. AWARE.
--- NOTE | 2019-09-19 19:31 | NUR ---
HAND-OFF: Report given to AMMON APARICIO.BEDSIDE ROUNDS DONE, PT.STABLE.
--- NOTE | 2019-09-19 19:35 | NUR ---
NURSE NOTES: Received report from ALESSANDRA Castellon. Patient is in bed resting comfortably. ANO x4. On room air with no signs of distress or SOB. No C/O pain or nausea at this time. IV intact and running IVF as ordered. Bed locked and in lowest position. Call light in easy reach. Will continue to follow plan of care.
[2019-09-20] VITALS (7 sets, daily range): BP systolic 105–133; BP diastolic 54–86
[2019-09-20 06:04] LABS: BASOPHILS % (AUTO) 1.3 % (0.0-2.0); EOSINOPHILS % (AUTO) 0.5 % (0.0-3.0); HEMATOCRIT 42.7 % (42.0-52.0); HEMOGLOBIN 14.5 G/DL (14.2-18.0); LYMPHOCYTES % (AUTO) 42.8 % (20.0-45.0); MEAN CORPUSCULAR VOLUME 79 FL (80-99); MONOCYTES % (AUTO) 8.5 % (1.0-10.0); PLATELET COUNT 179 K/UL (150-450); WHITE BLOOD COUNT 7.3 K/UL (4.8-10.8)
[2019-09-20] MEDS: D5 1/2NS w/KCl 20mEq 1,000 ML IV SCH ×2 (06:12→16:20)
[2019-09-20 06:37] LABS: ALANINE AMINOTRANSFERASE 57 U/L (12-78); ALBUMIN/GLOBULIN RATIO 0.8 (1.0-2.7); ALKALINE PHOSPHATASE 113 U/L (46-116); ANION GAP 11 mmol/L (5-15); ASPARTATE AMINO TRANSFERASE 28 U/L (15-37); BILIRUBIN,TOTAL 0.1 MG/DL (0.2-1.0); CARBON DIOXIDE 27 MMOL/L (21-32); CHLORIDE 104 MMOL/L (98-107); CREATININE < 0.2 MG/DL (0.55-1.30); PHOSPHORUS 3.8 MG/DL (2.5-4.9); POTASSIUM 3.4 MMOL/L (3.5-5.1); SODIUM 141 MMOL/L (136-145)
[2019-09-20] MEDS ORDERED: Atropine Inj 1mg/10ml Syr IV PRN (06:45)
[2019-09-20] MEDS ORDERED: Midazolam 2mg/2ml Inj IVP PRN (06:45)
[2019-09-20] MEDS ORDERED: DiphenhydrAMINE 50mg/ml Inj IVP PRN (06:45)
[2019-09-20] MEDS ORDERED: fentaNYL 100 mcg/2 mL IV PRN (06:45)
--- NOTE | 2019-09-20 06:46 | Anethesia Preoperative Eval ---
Anesthesia Pre-op PMH/ROS General Date of Evaluation: September 20, 2019 Time of Evaluation: 06:44 Anesthesiologist: bryce ASA Score: ASA 2 Mallampati Score Class I : Soft palate, uvula, fauces, pillars visible Class II: Soft palate, uvula, fauces visible Class III: Soft palate, base of uvula visible Class IV: Only hard plate visible Mallampati Classification: Class II Surgeon: carlos Diagnosis: colitis, rectal bleed Surgical Procedure: colonoscopy Anesthesia History: none Social History: smoking - unknown status Family History: no anesthesia problems Allergies: Coded Allergies: No Known Allergies (Unverified , 09/18/19) Medications: see eMAR Patient NPO?: Yes Past Medical History Gastrointestinal/Genitourinary: Reports: other - colitis, rectal bleed Anesthesia Pre-op Phys. Exam Physician Exam Last Vital Signs Date Time Temp Pulse Resp B/P (MAP) Pulse Ox O2 Delivery O2 Flow Rate FiO2 09/20/19 04:00 98.5 75 18 107/72 (84) 96 09/19/19 20:12 Room Air Constitutional: NAD Neurologic: CN 2-12 intact Cardiovascular: RRR Respiratory: CTA Gastrointestinal: S/NT/ND Airway Exam Mallampati Score: Class II MO: full Neck: flexible TMD: 2fb ROM: full Teeth: intact Anesthesia Pre-op A/P Labs Labs Test 09/18/19 08:00 09/18/19 12:50 09/19/19 06:05 09/20/19 05:35 White Blood Count 11.9 K/UL (4.8-10.8) 9.8 K/UL (4.8-10.8) 7.3 K/UL (4.8-10.8) Red Blood Count 6.44 M/UL (4.70-6.10) 5.90 M/UL (4.70-6.10) 5.40 M/UL (4.70-6.10) Hemoglobin 17.0 G/DL (14.2-18.0) 15.8 G/DL (14.2-18.0) 14.5 G/DL (14.2-18.0) Hematocrit 50.6 % (42.0-52.0) 46.6 % (42.0-52.0) 42.7 % (42.0-52.0) Mean Corpuscular Volume 79 FL (80-99) 79 FL (80-99) 79 FL (80-99) Mean Corpuscular Hemoglobin 26.4 PG (27.0-31.0) 26.7 PG (27.0-31.0) 26.9 PG (27.0-31.0) Mean Corpuscular Hemoglobin Concent 33.6 G/DL (32.0-36.0) 33.9 G/DL (32.0-36.0) 34.1 G/DL (32.0-36.0) Red Cell Distribution Width 13.5 % (11.6-14.8) 13.2 % (11.6-14.8) 13.0 % (11.6-14.8) Platelet Count 189 K/UL (150-450) 189 K/UL (150-450) 179 K/UL (150-450) Mean Platelet Volume 9.6 FL (6.5-10.1) 10.2 FL (6.5-10.1) 10.7 FL (6.5-10.1) Neutrophils (%) (Auto) 75.3 % (45.0-75.0) 55.8 % (45.0-75.0) 47.0 % (45.0-75.0) Lymphocytes (%) (Auto) 17.2 % (20.0-45.0) 34.3 % (20.0-45.0) 42.8 % (20.0-45.0) Monocytes (%) (Auto) 7.1 % (1.0-10.0) 8.7 % (1.0-10.0) 8.5 % (1.0-10.0) Eosinophils (%) (Auto) 0.1 % (0.0-3.0) 0.3 % (0.0-3.0) 0.5 % (0.0-3.0) Basophils (%) (Auto) 0.3 % (0.0-2.0) 0.8 % (0.0-2.0) 1.3 % (0.0-2.0) Erythrocyte Sedimentation Rate 25 MM/HR (0-15) 6 MM/HR (0-15) Sodium Level 138 MMOL/L (136-145) 138 MMOL/L (136-145) 141 MMOL/L (136-145) Potassium Level 3.5 MMOL/L (3.5-5.1) 3.6 MMOL/L (3.5-5.1) 3.4 MMOL/L (3.5-5.1) Chloride Level 101 MMOL/L (98-107) 101 MMOL/L (98-107) 104 MMOL/L (98-107) Carbon Dioxide Level 25 MMOL/L (21-32) 28 MMOL/L (21-32) 27 MMOL/L (21-32) Anion Gap 12 mmol/L (5-15) 9 mmol/L (5-15) 11 mmol/L (5-15) Blood Urea Nitrogen 11 mg/dL (7-18) 7 mg/dL (7-18) < 1 mg/dL (7-18) Creatinine 1.1 MG/DL (0.55-1.30) 1.2 MG/DL (0.55-1.30) < 0.2 MG/DL (0.55-1.30) Estimat Glomerular Filtration Rate > 60 mL/min (>60) > 60 mL/min (>60) > 60 mL/min (>60) Glucose Level 94 MG/DL (74-106) 91 MG/DL (74-106) 90 MG/DL (74-106) Calcium Level 8.9 MG/DL (8.5-10.1) 8.7 MG/DL (8.5-10.1) 8.6 MG/DL (8.5-10.1) Phosphorus Level 4.3 MG/DL (2.5-4.9) 4.2 MG/DL (2.5-4.9) 3.8 MG/DL (2.5-4.9) Magnesium Level 2.0 MG/DL (1.8-2.4) 2.2 MG/DL (1.8-2.4) 2.0 MG/DL (1.8-2.4) Total Bilirubin 0.4 MG/DL (0.2-1.0) 0.2 MG/DL (0.2-1.0) 0.1 MG/DL (0.2-1.0) Aspartate Amino Transf (AST/SGOT) 24 U/L (15-37) 32 U/L (15-37) 28 U/L (15-37) Alanine Aminotransferase (ALT/SGPT) 53 U/L (12-78) 56 U/L (12-78) 57 U/L (12-78) Alkaline Phosphatase 151 U/L (46-116) 125 U/L (46-116) 113 U/L (46-116) C-Reactive Protein, Quantitative 14.1 mg/dL (0.00-0.90) 4.9 mg/dL (0.00-0.90) 1.1 mg/dL (0.00-0.90) Total Protein 7.8 G/DL (6.4-8.2) 7.2 G/DL (6.4-8.2) 6.7 G/DL (6.4-8.2) Albumin 3.6 G/DL (3.4-5.0) 3.2 G/DL (3.4-5.0) 3.0 G/DL (3.4-5.0) Globulin 4.2 g/dL 4.0 g/dL 3.7 g/dL Albumin/Globulin Ratio 0.9 (1.0-2.7) 0.8 (1.0-2.7) 0.8 (1.0-2.7) Urine Opiates Screen Positive (NEGATIVE) Urine Barbiturates Screen Negative (NEGATIVE) Phencyclidine (PCP) Screen Negative (NEGATIVE) Urine Amphetamines Screen Negative (NEGATIVE) Urine Benzodiazepines Screen Negative (NEGATIVE) Urine Cocaine Screen Positive (NEGATIVE) Urine Marijuana (THC) Screen Negative (NEGATIVE) HIV (1&2) Antibody Rapid Negative (NEGATIVE) Risk Assessment & Plan Assessment: asa2 Plan: mac Status Change Before Surgery: No Pre-Antibiotics Drug: Suad Bradley MD September 20, 2019 06:46
--- NOTE | 2019-09-20 07:15 | NUR ---
HAND-OFF: Report given to ALESSANDRA Salmeron.
--- NOTE | 2019-09-20 07:25 | NUR ---
NURSE NOTES: Handoff received from Catina APARICIO. Patient is awake and alert, no signs of distress noted. No complaints of pain, patient states that he is "relaxed." IV is patent and asymptomatic, running IVF as ordered. Patient is scheduled for a colonoscopy this AM. Bed is low and locked, side rails up x2, call light is within reach.
[2019-09-20 07:49] LABS: CALCIUM 8.6 MG/DL (8.5-10.1)
[2019-09-20 07:58] LABS: BLOOD UREA NITROGEN 7 mg/dL (7-18)
--- NOTE | 2019-09-20 07:58 | NUR ---
NURSE NOTES: Patient left for colonoscopy in stable condition.
[2019-09-20] MEDS ORDERED: Lidocaine 1% MPF 10mg/ml 5ml ONE (08:00)
--- NOTE | 2019-09-20 08:06 | Pre-Procedure Note/Attestation ---
Pre-Procedure Note/Attestation Complete Prior to Procedure Planned Procedure: not applicable Procedure Narrative: colonoscopy Indications for Procedure Pre-Operative Diagnosis: gib Attestation I attest that I discussed the nature of the procedure; its benefits; risks and complications; and alternatives (and the risks and benefits of such alternatives ), prior to the procedure, with the patient (or the patient's legal dairy supplies sales representative). I attest that, if there was a reasonable possibility of needing a blood transfusion, the patient (or the patient's legal dairy supplies sales representative) was given the [facility] standardized written summary, pursuant to the [place] Blood Safety Act ([place] Health and Safety Code # 1645, as amended). I attest that I re-evaluated the patient just prior to the surgery and that there has been no change in the patient's H&P, except as documented below: Barron Keith MD September 20, 2019 08:06
[2019-09-20] MEDS ORDERED: NS 500ML IVPB ONE (08:07)
--- NOTE | 2019-09-20 08:26 | Endoscopy Procedure Note ---
Endoscopy Procedure Note General Indication for Procedure: gib Procedures Performed: colonoscopy Operative Findings/Diagnosis: colitis Specimen: yes Pt Tolerated Procedure Well: Yes Estimated Blood Loss: none Anesthesia Anesthesiologist: jeff Anesthesia: MAC Inserted Devices Implant(s) used?: No Quality Quality of Bowel Preparation: Good Did scope reach the cecum?: Yes Was there any complications?: No GI Core Measures 50 yrs or older w/o bx or poly: Not Applicable 10yrs. F/U recommended: Not Applicable Barron Keith MD September 20, 2019 08:26
--- NOTE | 2019-09-20 08:53 | NUR ---
NURSE NOTES: Patient returned from colonoscopy in stable condition.
--- NOTE | 2019-09-20 09:10 | Immediate Post-Op Evaluation ---
Immediate Post-Op Evalulation Immediate Post-Op Evalulation Procedure: colonoscopy w/bx Date of Evaluation: September 20, 2019 Time of Evaluation: 08:44 IV Fluids: 100ml Blood Products: none Estimated Blood Loss: negligible Blood Pressure Systolic: 111 Blood Pressure Diastolic: 64 Pulse Rate: 73 Respiratory Rate: 18 O2 Sat by Pulse Oximetry: 100 Temperature (Fahrenheit): 97.0 Pain Score (1-10): 0 Nausea: No Vomiting: No Complications none Patient Status: awake, reacts, patent Hydration Status: adequate Drug: Suad Bradley MD September 20, 2019 09:10
--- NOTE | 2019-09-20 09:11 | 48 Hour Post Anesthesia Eval ---
Post Anesthesia Evaluation Procedure: colonoscopy w/bx Date of Evaluation: September 20, 2019 Time of Evaluation: 08:46 Blood Pressure Systolic: 114 0: 54 Pulse Rate: 73 Respiratory Rate: 18 Temperature (Fahrenheit): 97.0 O2 Sat by Pulse Oximetry: 100 Airway: patent Nausea: No Vomiting: No Pain Intensity: 0 Hydration Status: adequate Cardiopulmonary Status: stable Mental Status/LOC: patient returned to baseline Post-Anesthesia Complications: none Follow-up care needed: N/A Suad Harrell MD September 20, 2019 09:11
[2019-09-20] MEDS: cefTRIAXone 1 GM in D5W 55 ML IVPB SCH (09:24)
--- NOTE | 2019-09-20 12:15 | Procedure Note ---
DATE OF PROCEDURE: 09/20/2019 SURGEON: Barron Keith MD. PROCEDURE: Colonoscopy with biopsy. ANESTHESIA: Per Dr. Morris. INSTRUMENT: Olympus adult flexible colonoscope. INDICATION: Rectal bleeding. REASON FOR PROCEDURE: The procedure, risks, benefits, and possible consequences, including hemorrhage, aspiration, perforation and infection, and alternative treatments, were explained to the patient/legal guardian by Dr. Barron Keith and the patient/legal guardian understood and accepted these risks. DESCRIPTION OF PROCEDURE: After informed consent was obtained and the patient was adequately sedated, first rectal exam was performed, which was normal. Then, the scope was advanced from rectum into the cecum documented by appendiceal orifice, ileocecal valve, and right upper quadrant palpation. Quality of prep was very good. The patient had evidence of colitis starting from the rectum all the way to about 40 cm from the anal verge, nonspecific. Differential diagnosis would be ulcerative colitis versus infectious colitis versus cocaine-induced colitis. Plan at this time to follow biopsy results. Biopsy from the sigmoid and rectum was obtained. Retroflexion of rectum was performed showed evidence of internal hemorrhoids. SUMMARY OF FINDINGS: 1. Evidence of colitis starting from rectum up to about 40 cm, nonspecific. Differential diagnosis ulcerative colitis versus infectious colitis versus cocaine-induced colitis. 2. Internal hemorrhoids. RECOMMENDATIONS: Follow up biopsy results and treat accordingly. Start diet and advance as tolerated. The patient most probably will benefit from outpatient followup for getting results of the biopsy and management. I want to thank, Dr. Tristen Lyons, for this kind referral. Barron Keith M.D. DR: PASHA JOB#: [id number] CC: Tristen Lyons MD.; Fax#: [phone]
--- NOTE | 2019-09-20 13:33 | NUR ---
*-* INSURANCE *-* UPDATED CLINICALS HAVE BEEN FAXED TO: [facility] F: [phone]
--- NOTE | 2019-09-20 14:54 | Pulmonology Progress Note ---
Subjective ROS Limited/Unobtainable: No Constitutional: Reports: no symptoms Allergies: Coded Allergies: No Known Allergies (Unverified , 09/18/19) All Systems: reviewed and negative except above Objective Last 24 Hour Vital Signs Date Time Temp Pulse Resp B/P (MAP) Pulse Ox O2 Delivery O2 Flow Rate FiO2 09/20/19 12:00 98.4 81 21 124/78 (93) 97 09/20/19 09:11 73 18 100 09/20/19 09:10 73 18 100 09/20/19 09:00 Room Air 09/20/19 08:52 97.8 75 18 105/56 98 Room Air 09/20/19 08:42 73 23 114/54 98 Room Air 09/20/19 08:37 78 15 105/81 99 Room Air 09/20/19 08:32 97.0 79 18 111/69 99 Simple Mask 6 09/20/19 04:00 98.5 75 18 107/72 (84) 96 09/19/19 23:55 98.5 87 18 124/87 (99) 97 09/19/19 20:12 Room Air 09/19/19 20:00 98.7 85 18 127/83 (98) 98 09/19/19 16:00 98.5 86 20 132/79 (96) 98 Intake and Output 09/19/19 09/20/19 19:00 07:00 Intake Total 1305 ml 800 ml Balance 1305 ml 800 ml Intake Oral 700 ml 800 ml IV Total 605 ml # Voids 5 2 # Bowel Movements 6 3 General Appearance: WD/WN, no acute distress HEENT: normocephalic, atraumatic Respiratory: chest wall non-tender, lungs clear Cardiovascular: normal peripheral pulses, normal rate Abdomen: normal bowel sounds, soft, non tender Genitourinary: normal external genitalia Extremities: no clubbing Skin: no rash 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 Lymphatic: no neck adenopathy Microbiology Date/Time Source Procedure Growth Status 09/18/19 12:50 Stool Clostridium difficile Toxin Assay - Final Complete Laboratory Tests 09/20/19 05:35: White Blood Count 7.3, Red Blood Count 5.40, Hemoglobin 14.5, Hematocrit 42.7, Mean Corpuscular Volume 79L, Mean Corpuscular Hemoglobin 26.9L, Mean Corpuscular Hemoglobin Concent 34.1, Red Cell Distribution Width 13.0, Platelet Count 179, Mean Platelet Volume 10.7H, Neutrophils (%) (Auto) 47.0, Lymphocytes (%) (Auto) 42.8, Monocytes (%) (Auto) 8.5, Eosinophils (%) (Auto) 0.5, Basophils (%) (Auto) 1.3, Erythrocyte Sedimentation Rate 7, Sodium Level 141, Potassium Level 3.4L, Chloride Level 104, Carbon Dioxide Level 27, Anion Gap 11 , Blood Urea Nitrogen 7, Creatinine < 0.2#L, Estimat Glomerular Filtration Rate > 60, Glucose Level 90, Calcium Level 8.6, Phosphorus Level 3.8, Magnesium Level 2.0, Total Bilirubin 0.1L, Aspartate Amino Transf (AST/SGOT) 28, Alanine Aminotransferase (ALT/SGPT) 57, Alkaline Phosphatase 113, C-Reactive Protein, Quantitative 1.1H, Total Protein 6.7, Albumin 3.0L, Globulin 3.7, Albumin/ Globulin Ratio 0.8L Current Medications Medications (Trade) Dose Ordered Sig/Pallavi Route PRN Reason Start Time Stop Time Status Last Admin Dose Admin Acetaminophen (Tylenol) 650 mg Q4H PRN ORAL Mild Pain (Pain Scale 1-3) 09/20/19 06:45 09/20/19 18:00 Acetaminophen (Tylenol) 650 mg Q6H PRN ORAL mild pain 1-3/temp>100.4 09/18/19 07:15 10/18/19 07:14 Acetaminophen/ Hydrocodone Bitart ([place] 5/325) 1 tab Q4H PRN ORAL Moderate Pain (Pain Scale 4-6) 09/18/19 07:15 09/25/19 07:14 Al Hydroxide/Mg Hydroxide (Mylanta) 15 ml Q1H PRN ORAL gi upset 09/20/19 06:45 09/20/19 18:00 Atropine Sulfate (Atropine) 0.5 mg Q5M PRN IV bpm less than 45 09/20/19 06:45 09/20/19 18:00 Ceftriaxone Sodium 1 gm/ Dextrose 55 ml @ 110 mls/hr Q24H IVPB 09/18/19 09:00 09/25/19 08:59 09/20/19 09:24 Dextrose/ Electrolytes 1,000 ml @ 75 mls/hr [id number] IV 09/18/19 11:00 10/18/19 10:59 09/20/19 06:12 Diphenhydramine HCl (Benadryl) 25 mg Q15M PRN IVP Itching 09/20/19 06:45 09/20/19 18:00 Fentanyl Citrate (Sublimaze 100 mcg/2 mL) 25 mcg Q10M PRN IV Moderate Pain (Pain Scale 4-6) 09/20/19 06:45 09/20/19 18:00 Hydralazine HCl (Apresoline) 5 mg Q30M PRN IV SBP>160 OR___/DBP>90 OR___ 09/20/19 06:45 09/20/19 18:00 Mesalamine (Rowasa) 4 gm BEDTIME RECTAL 09/20/19 21:00 12/19/19 20:59 Metronidazole 100 ml @ 100 mls/hr Q8H IVPB 09/18/19 10:00 09/25/19 09:59 09/20/19 10:20 Midazolam HCl (Versed 2mg/2ml vial) 1 mg Q15M PRN IVP For Anxiety 09/20/19 06:45 09/20/19 18:00 Morphine Sulfate (Morphine Sulfate) 2 mg Q4H PRN IVP Severe Pain (Pain Scale 7-10) 09/18/19 07:15 09/25/19 07:14 09/18/19 09:28 Ondansetron HCl (Zofran) 4 mg Q1H PRN IVP Nausea & Vomiting 09/20/19 06:45 09/20/19 18:00 Ondansetron HCl (Zofran) 4 mg Q4H PRN IVP Nausea & Vomiting 09/18/19 07:15 10/18/19 07:14 Assessment/Plan Problems: (1) Lower GI bleed (2) colitis (3) No pertinent past medical history Assessment/Plan doing better start diet iv fluids colonoscopy done, [place] colitis, UC versus infectious cause prbc prn ( no need now) GI evaluation. symptomatic treatment analgesics HIV testing, negative f/u on CRP Priyanka Hollingsworth MD September 20, 2019 14:54
--- NOTE | 2019-09-20 15:16 | NUR ---
DISCHARGE PLANNING PER DR CARROLL, PATIENT OK TO DC HOME. CHARGE NURSE CB INFORMED. SHE WILL INFORM DR DECKER AND OBTAIN DC ORDER.
--- NOTE | 2019-09-20 15:40 | NUR ---
NURSE NOTES: Called Dr. Avila and asked about patient's discharge. Dr. Avila advised to contact Dr. Lyons about d/c order and med rec.
--- NOTE | 2019-09-20 17:00 | NUR ---
NURSE NOTES: Dr. Lyons was contacted and asked about patient's d/c and med rec. Dr. Lyons is aware and stated he will get back to RN soon.
--- NOTE | 2019-09-20 17:45 | Infectious Diseases Prog Note ---
Assessment/Plan Assessment/Plan Assessment: COVID19 neg x1 (09/17 -done at [facility]) Colitis- r/o infectious vs autoimmune ([facility] or UC) -09/19 SP colonoscopy: . Evidence of colitis starting from rectum up to about 40 cm, nonspecific. Differential diagnosis ulcerative colitis versus infectious colitis versus cocaine-induced colitis. Internal hemorrhoids. -stool cx p Hematochezia -CT abd/p (at [facility]): Thick walled edematous transver colon, descending colon and rectosigmoid colon with normal caliber. Findings suggestive of colitis , possible IBD. Normal terminal ileum. No bowel obstruction. No adenopathy. -Cdiff neg Afebrile Mild leukocytosis, improving (WBC 13.7 at [facility])- SP UDS + cocaine, opiates HIV ab screen neg Plan: -Continue empiric Ceftriaxone and Flagyl #3/7 -if discharge, can be transitioned to PO Ciprofloxacin 500mg bid and Flagyl 500mg tid for 4 more days -f/u cx -monitor CBC/CMP, temperatures -f/u stool cx -GI f/u -f/u colon biopsy Thank you for consulting [facility]. Will continue to follow along with you. Discussed with RN. Subjective Allergies: Coded Allergies: No Known Allergies (Unverified , 09/18/19) Subjective afebrile no leukocytosis sp colonoscopy Objective Vital Signs Last 24 Hour Vital Signs Date Time Temp Pulse Resp B/P (MAP) Pulse Ox O2 Delivery O2 Flow Rate FiO2 09/20/19 12:00 98.4 81 21 124/78 (93) 97 09/20/19 09:11 73 18 100 09/20/19 09:10 73 18 100 09/20/19 09:00 Room Air 09/20/19 08:52 97.8 75 18 105/56 98 Room Air 09/20/19 08:42 73 23 114/54 98 Room Air 09/20/19 08:37 78 15 105/81 99 Room Air 09/20/19 08:32 97.0 79 18 111/69 99 Simple Mask 6 09/20/19 04:00 98.5 75 18 107/72 (84) 96 09/19/19 23:55 98.5 87 18 124/87 (99) 97 09/19/19 20:12 Room Air 09/19/19 20:00 98.7 85 18 127/83 (98) 98 Height (Feet): 6 Height (Inches): 6.00 Weight (Pounds): 204 Objective General Appearance: alert EENT: normal ENT inspection Neck: supple Cardiovascular: normal rate Respiratory/Chest: decreased breath sounds Abdomen: normal bowel sounds, non tender, soft Extremities: normal range of motion, non-tender Microbiology Date/Time Source Procedure Growth Status 09/18/19 12:50 Stool Clostridium difficile Toxin Assay - Final Complete Laboratory Tests Test 09/20/19 05:35 White Blood Count 7.3 K/UL (4.8-10.8) Red Blood Count 5.40 M/UL (4.70-6.10) Hemoglobin 14.5 G/DL (14.2-18.0) Hematocrit 42.7 % (42.0-52.0) Mean Corpuscular Volume 79 FL (80-99) L Mean Corpuscular Hemoglobin 26.9 PG (27.0-31.0) L Mean Corpuscular Hemoglobin Concent 34.1 G/DL (32.0-36.0) Red Cell Distribution Width 13.0 % (11.6-14.8) Platelet Count 179 K/UL (150-450) Mean Platelet Volume 10.7 FL (6.5-10.1) H Neutrophils (%) (Auto) 47.0 % (45.0-75.0) Lymphocytes (%) (Auto) 42.8 % (20.0-45.0) Monocytes (%) (Auto) 8.5 % (1.0-10.0) Eosinophils (%) (Auto) 0.5 % (0.0-3.0) Basophils (%) (Auto) 1.3 % (0.0-2.0) Erythrocyte Sedimentation Rate 7 MM/HR (0-15) Sodium Level 141 MMOL/L (136-145) Potassium Level 3.4 MMOL/L (3.5-5.1) L Chloride Level 104 MMOL/L (98-107) Carbon Dioxide Level 27 MMOL/L (21-32) Anion Gap 11 mmol/L (5-15) Blood Urea Nitrogen 7 mg/dL (7-18) Creatinine < 0.2 MG/DL (0.55-1.30) #L Estimat Glomerular Filtration Rate > 60 mL/min (>60) Glucose Level 90 MG/DL (74-106) Calcium Level 8.6 MG/DL (8.5-10.1) Phosphorus Level 3.8 MG/DL (2.5-4.9) Magnesium Level 2.0 MG/DL (1.8-2.4) Total Bilirubin 0.1 MG/DL (0.2-1.0) L Aspartate Amino Transf (AST/SGOT) 28 U/L (15-37) Alanine Aminotransferase (ALT/SGPT) 57 U/L (12-78) Alkaline Phosphatase 113 U/L (46-116) C-Reactive Protein, Quantitative 1.1 mg/dL (0.00-0.90) H Total Protein 6.7 G/DL (6.4-8.2) Albumin 3.0 G/DL (3.4-5.0) L Globulin 3.7 g/dL Albumin/Globulin Ratio 0.8 (1.0-2.7) L Current Medications Medications (Trade) Dose Ordered Sig/Pallavi Route PRN Reason Start Time Stop Time Status Last Admin Dose Admin Acetaminophen (Tylenol) 650 mg Q4H PRN ORAL Mild Pain (Pain Scale 1-3) 09/20/19 06:45 09/20/19 18:00 Acetaminophen (Tylenol) 650 mg Q6H PRN ORAL mild pain 1-3/temp>100.4 09/18/19 07:15 10/18/19 07:14 Acetaminophen/ Hydrocodone Bitart ([place] 5/325) 1 tab Q4H PRN ORAL Moderate Pain (Pain Scale 4-6) 09/18/19 07:15 09/25/19 07:14 Al Hydroxide/Mg Hydroxide (Mylanta) 15 ml Q1H PRN ORAL gi upset 09/20/19 06:45 09/20/19 18:00 Atropine Sulfate (Atropine) 0.5 mg Q5M PRN IV bpm less than 45 09/20/19 06:45 09/20/19 18:00 Ceftriaxone Sodium 1 gm/ Dextrose 55 ml @ 110 mls/hr Q24H IVPB 09/18/19 09:00 09/25/19 08:59 09/20/19 09:24 Dextrose/ Electrolytes 1,000 ml @ 75 mls/hr [id number] IV 09/18/19 11:00 10/18/19 10:59 09/20/19 06:12 Diphenhydramine HCl (Benadryl) 25 mg Q15M PRN IVP Itching 09/20/19 06:45 09/20/19 18:00 Fentanyl Citrate (Sublimaze 100 mcg/2 mL) 25 mcg Q10M PRN IV Moderate Pain (Pain Scale 4-6) 09/20/19 06:45 09/20/19 18:00 Hydralazine HCl (Apresoline) 5 mg Q30M PRN IV SBP>160 OR___/DBP>90 OR___ 09/20/19 06:45 09/20/19 18:00 Mesalamine (Rowasa) 4 gm BEDTIME RECTAL 09/20/19 21:00 12/19/19 20:59 Metronidazole 100 ml @ 100 mls/hr Q8H IVPB 09/18/19 10:00 09/25/19 09:59 09/20/19 10:20 Midazolam HCl (Versed 2mg/2ml vial) 1 mg Q15M PRN IVP For Anxiety 09/20/19 06:45 09/20/19 18:00 Morphine Sulfate (Morphine Sulfate) 2 mg Q4H PRN IVP Severe Pain (Pain Scale 7-10) 09/18/19 07:15 09/25/19 07:14 09/18/19 09:28 Ondansetron HCl (Zofran) 4 mg Q1H PRN IVP Nausea & Vomiting 09/20/19 06:45 09/20/19 18:00 Ondansetron HCl (Zofran) 4 mg Q4H PRN IVP Nausea & Vomiting 09/18/19 07:15 10/18/19 07:14 Allie Vaughan M.D. September 20, 2019 17:45
[2019-09-20] MEDS ORDERED: METRONIDAZOLE500 MG ORAL (17:52)
[2019-09-20] MEDS ORDERED: CIPRO500 MG PO (17:54)
--- NOTE | 2019-09-20 18:01 | Discharge Summary ---
Discharge Summary Hospital Course Date of Admission September 18, 2019 at 04:49 Date of Discharge Admitting Diagnosis HPI Gallo Hernandez Jr is a 23 year old male who was admitted on September 18, 2019 at 04: 49 for Colitis/Rectal Bleed Hospital Course Last 24 Hour Vital Signs Date Time Temp Pulse Resp B/P (MAP) Pulse Ox O2 Delivery O2 Flow Rate FiO2 09/20/19 16:00 98.3 88 21 133/86 (102) 97 09/20/19 12:00 98.4 81 21 124/78 (93) 97 09/20/19 09:11 73 18 100 09/20/19 09:10 73 18 100 09/20/19 09:00 Room Air 09/20/19 08:52 97.8 75 18 105/56 98 Room Air 09/20/19 08:42 73 23 114/54 98 Room Air 09/20/19 08:37 78 15 105/81 99 Room Air 09/20/19 08:32 97.0 79 18 111/69 99 Simple Mask 6 09/20/19 04:00 98.5 75 18 107/72 (84) 96 09/19/19 23:55 98.5 87 18 124/87 (99) 97 09/19/19 20:12 Room Air 09/19/19 20:00 98.7 85 18 127/83 (98) 98 Physical Exam General: No acute distress, awake and alert HEENT: NCAT, sclera anicteric, PERRL, EOMI. Neck: Supple, no significant jugular venous distention, Lungs: Good inspiratory effort, no accessory muscle use, clear to auscultation bilaterally, no Wheeze or Rales. Heart: Regular rate and rhythm, normal S1/S2, no murmurs/gallops Abdomen: soft, nontender, nondistended. Normoactive bowel sounds, mild obesity. / Rectal: Refused and deferred. Extremities: No Cyanosis , clubbing or edema. Neuro: A&O x 3, Able to move all extremities Skin: warm, no rashes or lesions Psych: Normal mood and affect Discharge summary dictated job # [id number] Discharge Discharge Vital Signs Last Vital Signs Date Time Temp Pulse Resp B/P (MAP) Pulse Ox O2 Delivery O2 Flow Rate FiO2 09/20/19 16:00 98.3 88 21 133/86 (102) 97 09/20/19 09:00 Room Air 09/20/19 08:32 6 Discharge Disposition Patient was discharged to Tristen Lyons MD September 20, 2019 18:01
--- NOTE | 2019-09-20 19:30 | NUR ---
HAND-OFF: Report given to Amari APARICIO.
--- NOTE | 2019-09-20 19:35 | NUR ---
NURSE NOTES: Pt. received from ALESSANDRA Salmeron. Pt. AAOx4, on room air, no indications of respiratory distress, no complaints of pain. IV left AC 20g intact and patent, running antibiotics at this time. Pt. aware of pending discharge, private transportation arranged. Bed low and locked, side rails x2 up, and call light in reach.
[2019-09-20] MEDS ORDERED: Mesalamine Enema 4gm/60ml RECTAL SCH (21:00)
--- NOTE | 2019-09-20 22:00 | NUR ---
NURSE NOTES: Pt. discharged to home, family member aDv aware of discharge. Pt. with VS stable, AAOx4, ambulatory with steady gait, no pain and no discomfort. Pt. sent with prescription antibiotics and instructed to follow up as ordered. Education given regarding pt. diagnosis. ID band removed and IV removed. Belongings list checked and signed by patient. Addendum: 09/20/19 at 2232 by Amari Huang RN Transportation arranged with family member.
--- NOTE | 2019-09-21 10:15 | Discharge Summary ---
DATE OF ADMISSION: 09/18/2019 DATE OF DISCHARGE: 09/20/2019 CHIEF COMPLAINT: Abdominal pain. HISTORY OF PRESENT ILLNESS: This is a 23-year-old gentleman, denies any past medical history or past surgical history who presented initially to [facility] complaining about abdominal pain associated with bloody stool. Shortly after initial evaluation, patient was admitted to the hospital for possible colitis. Throughout the hospital course, patient was consulted with Dr. Vaughan from Infectious Disease, Dr. Hollingsworth, Pulmonary Critical Care and Dr. Keith from Gastroenterology. Patient underwent colonoscopy, noted to have evidence of a colitis starting from the rectum up to about 40 centimeter nonspecific. Differential diagnosis also colitis versus infectious colitis versus cocaine-induced colitis. Internal hemorrhoid was noted. Multiple biopsies were obtained. Patient's status improved and he denies any rectal bleeding or abdominal pain or nausea or vomiting. Hemoglobin/hematocrit has been stable and last hemoglobin is 14.5 and hematocrit 42. Patient subsequently was discharged home today to followed up in my office next week. My business card was provided to the patient. Patient will be discharged home on Cipro and Flagyl oral for 7 days. FINAL DIAGNOSIS: Rectal bleeding, possibly due to the colitis such as ulcerative colitis versus infectious colitis versus cocaine-induced colitis. I advised patient to follow up in my office within one week. Tristen Lyons M.D. DR: KEELEY JOB#: [id number] CC:
--- NOTE | 2019-09-23 14:36 | NUR ---
*-* INSURANCE *-* UPDATED CLINICALS HAVE BEEN FAXED TO: [facility] F: [phone] Addendum: 09/23/19 at 1436 by BRAD HOPSON CM DISCHARGE SUMMARIES HAVE BEEN FAXED
== END 2019-09-20 22:15 | disposition home or self-care (01) | DRG 386 ==
LOC: 3E 04:49
PROC: 0DBP8ZX Excision of Rectum, Via Natural or Artificial Opening Endoscopic, Diagnostic (ICD-10-PCS; principal; 2019-09-18)
PROC: 0DBN8ZX Excision of Sigmoid Colon, Via Natural or Artificial Opening Endoscopic, Diagnostic (ICD-10-PCS; principal; 2019-09-18)
DX: K51.90 Ulcerative colitis, unspecified, without complications (principal); K52.1 Toxic gastroenteritis and colitis; A09 Infectious gastroenteritis and colitis, unspecified; K64.8 Other hemorrhoids
CPT/HCPCS: 36415; 80053; 80307; 83735; 84100; 85025; 85651; 86140; 86703; 87045; 87181; 87324; 94003; 94150